=== PATIENT | male | born 1975 | race Caucasian/White ===

== ENCOUNTER 2017-04-24 09:44 | Inpatient (IN) | payer OTHER ==
--- NOTE | 2017-04-24 10:09 | RAD ---
PROCEDURE: CHEST RADIOGRAPH, 1 VIEW HISTORY: r/o infiltrate COMPARISON: None available. FINDINGS: LUNGS: Clear. PLEURA: No pneumothorax or pleural fluid seen. CARDIOVASCULAR: Normal. OSSEOUS STRUCTURES: No significant abnormalities. VISUALIZED UPPER ABDOMEN: Normal. OTHER FINDINGS: None. IMPRESSION: No active disease.
[2017-04-24 10:37] LABS: BASO % 0.7 % (0.0-2.0); EOS # 0.1 K/uL (0.0-0.7); EOS % 1.8 % (0.0-4.0); HEMATOCRIT 42.3 % (35.0-51.0); LYMPH # 1.8 K/uL (1.0-4.3); LYMPH % 33.5 % (20.0-40.0); MEAN CELL VOLUME 88.9 fL (80.0-94.0); MEAN CORPUSCULAR HEMOGLOBIN 29.4 pg (27.0-31.0); MEAN CORPUSCULAR HGB CONC 33.1 g/dL (33.0-37.0); MEAN PLATELET VOLUME 9.4 fL (7.2-11.7); MONO # 0.5 K/uL (0.0-0.8); MONO % 9.9 % (0.0-10.0); NRBC % 0.1 % (0.0-2.0); RED CELL DISTRIBUTION WIDTH 12.8 % (11.5-14.5); WHITE BLOOD COUNT 5.3 K/uL (4.8-10.8)
[2017-04-24 10:38] LABS: CHLORIDE 101 mmol/L (98-107); SODIUM 136 mmol/L (132-148)
[2017-04-24 10:39] LABS: POTASSIUM 4.6 mmol/L (3.6-5.2)
[2017-04-24 10:41] LABS: ALB/GLOB RATIO 1.4 (1.0-2.1); ALKALINE PHOSPHATASE 66 U/L (38-126); ALT/SGPT 42 U/L (21-72); AST/SGOT 33 U/L (17-59); BILIRUBIN,TOTAL 0.8 mg/dL (0.2-1.3); BLOOD UREA NITROGEN 19 mg/dL (9-20); CALCIUM 8.6 mg/dl (8.6-10.4); CARBON DIOXIDE 25 mmol/L (22-30); GFR AFRICAN-AMERICAN > 60; GLUCOSE,RANDOM 91 mg/dL (75-110); TOTAL PROTEIN 7.3 g/dL (6.3-8.3)
--- NOTE | 2017-04-24 11:07 | C.PDOC ---
History Of Present Illness 42 y/o male sent in by Dr. Ramírez for an umbilical hernia. Pt notes no physical complaints at this time. Pt has had NPO since [address] Ramírez requests Dr Grijalva for cardiac clearance. Time Seen by Provider: 04/24/17 09:54 Chief Complaint (Nursing): Abdominal Pain History Per: Patient History/Exam Limitations: no limitations Onset/Duration Of Symptoms: Days Current Symptoms Are (Timing): Still Present Severity: None Radiation Of Pain To:: None Associated Symptoms: denies: Fever, Chills, Nausea, Vomiting, Diarrhea Recent travel outside of the [place]: No Additional History Per: Patient Past Medical History Reviewed: Historical Data, Nursing Documentation, Vital Signs Vital Signs: Last Vital Signs Temp 97.9 F 04/24/17 12:59 Pulse 47 L 04/24/17 16:29 Resp 20 04/24/17 12:59 BP 109/70 04/24/17 12:59 Pulse Ox 98 04/24/17 12:59 Family History: States: Unknown Family Hx - Social History Hx Alcohol Use: No Hx Substance Use: No - Immunization History Hx Tetanus Toxoid Vaccination: No Hx Influenza Vaccination: Yes Hx Pneumococcal Vaccination: No Review Of Systems Except As Marked, All Systems Reviewed And Found Negative. Constitutional: Negative for: Fever, Chills, Weakness Respiratory: Negative for: Shortness of Breath Gastrointestinal: Negative for: Nausea, Vomiting, Abdominal Pain, Diarrhea, Constipation Neurological: Negative for: Weakness, Numbness Physical Exam - Physical Exam Appears: Non-toxic, No Acute Distress Skin: Warm, Dry Head: Atraumatic, Normacephalic Eye(s): bilateral: Normal Inspection Chest: Symmetrical Cardiovascular: Rhythm Regular, No Murmur Respiratory: Normal Breath Sounds, No Accessory Muscle Use, No Rales, No Rhonchi , No Wheezing Gastrointestinal/Abdominal: Bowel Sounds ((+) bowel sounds), Soft, No Tenderness , Hernia (Easily palpable 2cm diameter umbilical hernia.) Neurological/Psych: Oriented x3, Normal Speech, Normal Cognition ED Course And Treatment - Laboratory Results Result Diagrams: 04/24/17 10:21 04/24/17 10:21 ECG: Interpreted By Me, Viewed By Me ECG Rhythm: Sinus Bradycardia Interpretation Of ECG: Flattened T wave in V3 Rate From EC O2 Sat by Pulse Oximetry: 98 (RA) Pulse Ox Interpretation: Normal Medical Decision Making Medical Decision Making: Impression: 42 y/o male sent in by Dr. Ramírez for an umbilical hernia. Plans: -EKG -Blood labs -Reassess Spoke to Dr. 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 Dr. Grijalva recommends stress and echo prior to going to OR. Dr. Ramírez to be notified. Disposition - Disposition Disposition: HOSPITALIZED Disposition Time: 11:00 Condition: STABLE - Clinical Impression Clinical Impression: Umbilical hernia - Scribe Statement The provider has reviewed the documentation as recorded by the Scribe Yvonne marlow All medical record entries made by the Scribe were at my direction and personally dictated by me. I have reviewed the chart and agree that the record accurately reflects my personal performance of the history, physical exam, medical decision making, and the department course for this patient. I have also personally directed, reviewed, and agree with the discharge instructions and disposition.
[2017-04-24] MEDS: Oxycodone/Acetaminophen 5/325 mg Tab PO PRN (16:10)
--- NOTE | 2017-04-24 20:45 | CP.PCM.CON ---
History of Present Illness - History of Present Illness History of Present Illness: Pre Operative Cardiac risk assessment 42 M with hx of CAD, VA s/p stents, Hyperlipidemia, HTN admitted for hernia (? Strngulated) Chief Complaint (Nursing): Abdominal Pain History Per: Patient History/Exam Limitations: no limitations Onset/Duration Of Symptoms: Days Current Symptoms Are (Timing): Still Present Severity: None Radiation Of Pain To:: None Associated Symptoms: denies: Fever, Chills, Nausea, Vomiting, Diarrhea Recent travel outside of the [place]: No Additional History Per: Patient Past Medical History Reviewed: Historical Data, Nursing Documentation, Vital Signs Vital Signs: Last Vital Signs Temp 97.9 F 04/24/17 12:59 Pulse 47 L 04/24/17 16:29 Resp 20 04/24/17 12:59 BP 109/70 04/24/17 12:59 Pulse Ox 98 04/24/17 12:59 Family History: States: Unknown Family Hx - Social History Hx Alcohol Use: No Hx Substance Use: No - Immunization History Hx Tetanus Toxoid Vaccination: No Hx Influenza Vaccination: Yes Hx Pneumococcal Vaccination: No Review Of Systems Except As Marked, All Systems Reviewed And Found Negative. Constitutional: Negative for: Fever, Chills, Weakness Respiratory: Negative for: Shortness of Breath Gastrointestinal: Negative for: Nausea, Vomiting, Abdominal Pain, Diarrhea, Constipation Neurological: Negative for: Weakness, Numbness Physical Exam - Physical Exam Appears: Non-toxic, No Acute Distress Skin: Warm, Dry Head: Atraumatic, Normacephalic Eye(s): bilateral: Normal Inspection Chest: Symmetrical Cardiovascular: Rhythm Regular, No Murmur Respiratory: Normal Breath Sounds, No Accessory Muscle Use, No Rales, No Rhonchi , No Wheezing Gastrointestinal/Abdominal: Bowel Sounds ((+) bowel sounds), Soft, No Tenderness , Hernia (Easily palpable 2cm diameter umbilical hernia.) Neurological/Psych: Oriented x3, Normal Speech, Normal Cognition Past Patient History - Past Medical History & Family History Past Medical History?: Yes - Past Social History Smoking Status: Former Smoker - CARDIAC Other/Comment: 2 CARDIAC STENTS [address] GARAY - PULMONARY Hx Respiratory Disorders: No - NEUROLOGICAL Hx Neurological Disorder: No - HEENT Hx HEENT Problems: No - RENAL Hx Chronic Kidney Disease: No - ENDOCRINE/METABOLIC Hx Endocrine Disorders: No - HEMATOLOGICAL/ONCOLOGICAL Hx Blood Disorders: No - INTEGUMENTARY Hx Dermatological Problems: No - MUSCULOSKELETAL/RHEUMATOLOGICAL Hx Falls: No - GASTROINTESTINAL Other/Comment: UMBILICAL HERNIA - GENITOURINARY/GYNECOLOGICAL Hx Genitourinary Disorders: No - PSYCHIATRIC Hx Substance Use: No - SURGICAL HISTORY Hx Cardiac Catheterization: Yes (stents x2) - ANESTHESIA Hx Anesthesia: Yes Hx Anesthesia Reactions: No Meds Allergies/Adverse Reactions: Allergies Allergy/AdvReac Type Severity Reaction Status Date / Time No Known Allergies Allergy Unverified 04/24/17 09:47 - Medications Medications: Current Medications Aspirin (Aspirin Chewable) 81 mg PO DAILY [facility] Clopidogrel Bisulfate (Plavix) 75 mg PO DAILY [facility] Oxycodone/Acetaminophen (Percocet 5/325 Mg Tab) 1 tab PO Q6H PRN PRN Reason: Pain, severe (8-10) Stop: 04/27/17 14:53 Last Admin: 04/24/17 16:10 Dose: 1 tab Rosuvastatin Calcium (Crestor) 20 mg PO HS [facility] Results - Vital Signs Recent Vital Signs: Last Vital Signs Temp 97.9 F 04/24/17 12:59 Pulse 55 L 04/24/17 20:11 Resp 20 04/24/17 12:59 BP 109/70 04/24/17 12:59 Pulse Ox 98 04/24/17 18:03 - Labs Result Diagrams: 04/26/17 11:34 04/26/17 11:34 Labs: Laboratory Results - last 24 hr 04/24/17 04/24/17 11:41 11:41 PT 11.0 INR 1.0 APTT 31 Blood Type A POSITIVE Antibody Screen Negative Assessment & Plan - Assessment and Plan (Free Text) Assessment: CAD Hx of VA s/p stents HTN Hyperlipidemia Hernia Patient scheduled for ECHO and stress as a pre op cardiac work up
--- NOTE | 2017-04-24 23:08 | CP.PCM.HP ---
History of Present Illness - History of Present Illness History of Present Illness: CC: admitted for umbillical hernia 42 y/o male who has h/o CAD, 3 stents in coronories, last stent done 1 year ago , followed up by Dr. Garay, advised by Dr. Ramírez for an umbilical hernia surgery. Pt notes no physical complaints at this time. Pt has had NPO since [address] Ramírez requests Dr Garay for cardiac clearance, Patient scheduled for ECHO and stress as a pre op cardiac work up Present on Admission - Present on Admission Any Indicators Present on Admission: Yes Review of Systems - Review of Systems Systems not reviewed;Unavailable: Acuity of Condition - Constitutional Constitutional: absent: As Per HPI, Anorexia, Chills, Daytime Sleepiness, Excessive Sweating, Fatigue, Fever, Frequent Falls, Headache, Increased Appetite , Lethargy, Malaise, Night Sweats, Snoring, Sleep Apnea, Weight Gain, Weight Loss, Weakness, Other - EENT Eyes: absent: As Per HPI, Blind Spots, Blurred Vision, Change in Vision, Decreased Night Vision, Diplopia, Discharge, Dry Eye, Exophthalmos, Floaters, Irritation, Itchy Eyes, Loss of Peripheral Vision, Pain, Photophobia, Requires Corrective Lenses, Sees Flashes, Spots in Vision, Tunnel Vision, Other Visual Disturbances, Loss of Vision, Other Nose/Mouth/Throat: absent: As Per HPI, Epistaxis, Nasal Congestion, Nasal Discharge, Nasal Obstruction, Nasal Trauma, Nose Pain, Post Nasal Drip, Sinus Pain, Sinus Pressure, Bleeding Gums, Change in Voice, Dental Pain, Dry Mouth, Dysphagia, Halitosis, Hoarsness, Lip Swelling, Mouth Lesions, Mouth Pain, Odynophagia, Sore Throat, Throat Swelling, Tongue Swelling, Facial Pain, Neck Pain, Neck Mass, Other - Cardiovascular Cardiovascular: absent: As Per HPI, Acrocyanosis, Chest Pain, Chest Pain at Rest , Chest Pain with Activity, Claudication, Diaphoresis, Dyspnea, Dyspnea on Exertion, Edema, Irregular Heart Rhythm, Pain Radiating to Arm/Neck/Jaw, Leg Edema, Leg Ulcers, Lightheadedness, Orthopnea, Palpitations, Paroxysmal Nocturnal Dyspnea, Pedal Edema, Radiating Pain, Rapid Heart Rate, Slow Heart Rate, Syncope, Other - Gastrointestinal Additional comments: umbilical hernia Past Patient History - Past Medical History & Family History Past Medical History?: Yes - Past Social History Smoking Status: Former Smoker - CARDIAC Other/Comment: 2 CARDIAC STENTS [address] GARAY - PULMONARY Hx Respiratory Disorders: No - NEUROLOGICAL Hx Neurological Disorder: No - HEENT Hx HEENT Problems: No - RENAL Hx Chronic Kidney Disease: No - ENDOCRINE/METABOLIC Hx Endocrine Disorders: No - HEMATOLOGICAL/ONCOLOGICAL Hx Blood Disorders: No - INTEGUMENTARY Hx Dermatological Problems: No - MUSCULOSKELETAL/RHEUMATOLOGICAL Hx Falls: No - GASTROINTESTINAL Other/Comment: UMBILICAL HERNIA - GENITOURINARY/GYNECOLOGICAL Hx Genitourinary Disorders: No - PSYCHIATRIC Hx Substance Use: No - SURGICAL HISTORY Hx Cardiac Catheterization: Yes (stents x2) - ANESTHESIA Hx Anesthesia: Yes Hx Anesthesia Reactions: No Meds Allergies/Adverse Reactions: Allergies Allergy/AdvReac Type Severity Reaction Status Date / Time No Known Allergies Allergy Unverified 04/24/17 09:47 Physical Exam - Constitutional Appears: No Acute Distress - Head Exam Head Exam: ATRAUMATIC, NORMAL INSPECTION, NORMOCEPHALIC - Eye Exam Eye Exam: EOMI, Normal appearance, PERRL Pupil Exam: NORMAL ACCOMODATION, PERRL - Respiratory Exam Respiratory Exam: Clear to Auscultation Bilateral, NORMAL BREATHING PATTERN - Cardiovascular Exam Cardiovascular Exam: REGULAR RHYTHM - GI/Abdominal Exam GI & Abdominal Exam: Normal Bowel Sounds, Pulsatile Mass, Soft. absent: Tenderness Results - Vital Signs Recent Vital Signs: Last Vital Signs Temp 97.9 F 04/24/17 12:59 Pulse 55 L 04/24/17 20:11 Resp 20 04/24/17 12:59 BP 109/70 04/24/17 12:59 Pulse Ox 98 04/24/17 18:03 - Labs Result Diagrams: 04/26/17 11:34 04/26/17 11:34 Labs: Laboratory Results - last 24 hr 04/24/17 04/24/17 04/24/17 11:41 11:41 19:48 PT 11.0 INR 1.0 APTT 31 TSH 3rd Generation 1.40 Blood Type A POSITIVE Antibody Screen Negative Assessment & Plan (1) Umbilical hernia Assessment and Plan: CAD Hx of [place] s/p stents HTN Hyperlipidemia Hernia once pt is cleared by cardiac umbilical hernia surgery Status: Acute (2) HTN (hypertension) Status: Acute (3) CAD (coronary artery disease) Status: Acute
[2017-04-25 08:58] LABS: BASO % 0.5 % (0.0-2.0); EOS # 0.1 K/uL (0.0-0.7); EOS % 2.1 % (0.0-4.0); HEMATOCRIT 41.7 % (35.0-51.0); LYMPH # 1.5 K/uL (1.0-4.3); LYMPH % 27.7 % (20.0-40.0); MEAN CELL VOLUME 89.3 fL (80.0-94.0); MEAN CORPUSCULAR HEMOGLOBIN 29.8 pg (27.0-31.0); MEAN CORPUSCULAR HGB CONC 33.4 g/dL (33.0-37.0); MEAN PLATELET VOLUME 9.3 fL (7.2-11.7); MONO # 0.5 K/uL (0.0-0.8); MONO % 8.8 % (0.0-10.0); RED CELL DISTRIBUTION WIDTH 12.8 % (11.5-14.5); WHITE BLOOD COUNT 5.3 K/uL (4.8-10.8)
[2017-04-25 09:04] LABS: CHLORIDE 99 mmol/L (98-107)
[2017-04-25 09:05] LABS: POTASSIUM 3.9 mmol/L (3.6-5.2); SODIUM 135 mmol/L (132-148)
[2017-04-25 09:07] LABS: GFR AFRICAN-AMERICAN > 60
[2017-04-25 09:08] LABS: BLOOD UREA NITROGEN 13 mg/dL (9-20); CALCIUM 8.7 mg/dl (8.6-10.4); CARBON DIOXIDE 27 mmol/L (22-30); GLUCOSE,RANDOM 93 mg/dL (75-110)
--- NOTE | 2017-04-25 11:10 | CARD ---
APPROVED REPORT EXAM: Two-dimensional and M-mode echocardiogram with Doppler and color Doppler. Other Information Quality : GoodRhythm : NSR INDICATION CAD Chest Pain umbilibal zachary M-Mode DIMENSIONS RVDd2.28 (2.1-3.2cm)Left Atrium (MM)3.94 (2.5-4.0cm) IVSd0.85 (0.7-1.1cm)Aortic Root3.25 (2.2-3.7cm) LVDd5.11 (4.0-5.6cm)Aortic Cusp Exc.2.18 (1.5-2.0cm) PWd0.94 (0.7-1.1cm)FS (%) 36 % LVDs3.25 (2.0-3.8cm)LVEF (%)66 (>50%) Mitral Valve MV E Darjhjcb40.0cm/sMV A Ftgkjoah90.1cm/sE/A ratio1.4 TDI E/Lateral E'0.0E/Medial E'0.0 Tricuspid Valve TR Peak [id number]/sTR Peak Gr.[id number] LEFT VENTRICLE The left ventricle is normal size. There is normal left ventricular wall thickness. The left ventricular function is normal. The left ventricular ejection fraction is within the normal range. There is normal LV segmental wall motion. The left ventricular diastolic function is normal. RIGHT VENTRICLE The right ventricle is normal size. The right ventricular systolic function is normal. ATRIA The left atrium size is normal. The right atrium size is normal. AORTIC VALVE The aortic valve is normal in structure. No aortic regurgitation is present. MITRAL VALVE The mitral valve is normal in structure. Mitral regurgitation is trace. TRICUSPID VALVE The tricuspid valve is normal in structure. There is trace tricuspid regurgitation. PULMONIC VALVE The pulmonary valve is normal in structure. There is trace pulmonic valvular regurgitation. GREAT VESSELS The aortic root is normal in size. The IVC is normal in size and collapses >50% with inspiration. PERICARDIAL EFFUSION There is no pericardial effusion. <Conclusion> Normal biventricular function. Insignificant mitral, ticuspid and pulmonic regurgitation. No pericardial effusion.
--- NOTE | 2017-04-25 19:25 | CARD ---
APPROVED REPORT EKG Measurement Heart [id number] TN 122P16 [id number] <Conclusion> Sinus bradycardia Otherwise normal ECG
--- NOTE | 2017-04-25 22:47 | CP.PCM.PN ---
Subjective - Date & Time of Evaluation Date of Evaluation: 04/25/17 Time of Evaluation: 18:40 - Subjective Subjective: Patient s/p ECHO and stress test Stress test normal LV function normal No cardiac symptoms This patient assessed as low risk for cardiac events for Hernia surgery under general anaesthesia Review Of Systems Except As Marked, All Systems Reviewed And Found Negative. Constitutional: Negative for: Fever, Chills, Weakness Respiratory: Negative for: Shortness of Breath Gastrointestinal: Negative for: Nausea, Vomiting, Abdominal Pain, Diarrhea, Constipation Neurological: Negative for: Weakness, Numbness Physical Exam - Physical Exam Appears: Non-toxic, No Acute Distress Skin: Warm, Dry Head: Atraumatic, Normacephalic Eye(s): bilateral: Normal Inspection Chest: Symmetrical Cardiovascular: Rhythm Regular, No Murmur Respiratory: Normal Breath Sounds, No Accessory Muscle Use, No Rales, No Rhonchi , No Wheezing Gastrointestinal/Abdominal: Bowel Sounds ((+) bowel sounds), Soft, No Tenderness , Hernia (Easily palpable 2cm diameter umbilical hernia.) Neurological/Psych: Oriented x3, Normal Speech, Normal Cognition Objective - Vital Signs/Intake and Output Vital Signs (last 24 hours): Temp Pulse Resp BP Pulse Ox 98.1 F 51 L 20 118/73 96 04/25/17 15:00 04/25/17 15:00 04/25/17 15:00 04/25/17 15:00 04/25/17 15:00 - Medications Medications: Current Medications Famotidine (Pepcid) 20 mg IVP Q12 [facility] Last Admin: 04/25/17 21:23 Dose: 20 mg Oxycodone/Acetaminophen (Percocet 5/325 Mg Tab) 1 tab PO Q6H PRN PRN Reason: Pain, severe (8-10) Stop: 04/27/17 14:53 Last Admin: 04/24/17 16:10 Dose: 1 tab Pneumococcal Polyvalent Vaccine (Pneumovax 23 Vaccine) 0.5 ml IM .ONCE ONE Stop: 04/27/17 09:51 Rosuvastatin Calcium (Crestor) 20 mg PO HS [facility] Last Admin: 04/25/17 21:23 Dose: 20 mg - Labs Labs: PT 11.4 SECONDS (9.7-12.2) 04/25/17 08:45 INR 1.0 04/25/17 08:45 APTT 31 SECONDS (21-34) 04/24/17 11:41 Assessment and Plan - Assessment and Plan (Free Text) Assessment: CAD Hx of [place] s/p stents HTN Hyperlipidemia Hernia Patient s/p ECHO and stress test Stress test normal LV function normal No cardiac symptoms This patient assessed as low risk for cardiac events for Hernia surgery under general anaesthesia
--- NOTE | 2017-04-25 23:17 | CP.PCM.PN ---
Subjective - Date & Time of Evaluation Date of Evaluation: 04/25/17 Time of Evaluation: 09:40 - Subjective Subjective: pt seen and evalauted, s/p stress test, pending pre op clerance for umbilical hernia repair surgery, NAD Objective - Vital Signs/Intake and Output Vital Signs (last 24 hours): Temp Pulse Resp BP Pulse Ox 98.1 F 51 L 20 118/73 96 04/25/17 15:00 04/25/17 15:00 04/25/17 15:00 04/25/17 15:00 04/25/17 15:00 Intake and Output: 04/25/17 04/26/17 18:59 06:59 Intake Total 480 Balance 480 - Medications Medications: Current Medications Famotidine (Pepcid) 20 mg IVP Q12 [facility] Last Admin: 04/25/17 21:23 Dose: 20 mg Oxycodone/Acetaminophen (Percocet 5/325 Mg Tab) 1 tab PO Q6H PRN PRN Reason: Pain, severe (8-10) Stop: 04/27/17 14:53 Last Admin: 04/24/17 16:10 Dose: 1 tab Pneumococcal Polyvalent Vaccine (Pneumovax 23 Vaccine) 0.5 ml IM .ONCE ONE Stop: 04/27/17 09:51 Rosuvastatin Calcium (Crestor) 20 mg PO HS [facility] Last Admin: 04/25/17 21:23 Dose: 20 mg - Labs Labs: PT 11.4 SECONDS (9.7-12.2) 04/25/17 08:45 INR 1.0 04/25/17 08:45 APTT 31 SECONDS (21-34) 04/24/17 11:41 - Constitutional Appears: Well - Head Exam Head Exam: ATRAUMATIC, NORMAL INSPECTION, NORMOCEPHALIC - Eye Exam Eye Exam: EOMI, Normal appearance, PERRL Pupil Exam: NORMAL ACCOMODATION, PERRL - ENT Exam ENT Exam: Mucous Membranes Moist, Normal Exam - Respiratory Exam Respiratory Exam: Clear to Ausculation Bilateral, NORMAL BREATHING PATTERN - Cardiovascular Exam Cardiovascular Exam: REGULAR RHYTHM, +S1, +S2. absent: Murmur - GI/Abdominal Exam GI & Abdominal Exam: Soft, Hernia, Normal Bowel Sounds, Pulsatile Mass. absent : Tenderness Assessment and Plan (1) CAD (coronary artery disease) Status: Acute (2) HTN (hypertension) Status: Acute (3) Umbilical hernia Status: Acute
[2017-04-26 11:40] LABS: BASO % 0.6 % (0.0-2.0); EOS # 0.1 K/uL (0.0-0.7); EOS % 1.2 % (0.0-4.0); LYMPH # 1.8 K/uL (1.0-4.3); LYMPH % 32.3 % (20.0-40.0); MEAN CELL VOLUME 89.5 fL (80.0-94.0); MEAN CORPUSCULAR HGB CONC 33.5 g/dL (33.0-37.0); MEAN PLATELET VOLUME 9.3 fL (7.2-11.7); MONO # 0.5 K/uL (0.0-0.8); MONO % 9.7 % (0.0-10.0); RED CELL DISTRIBUTION WIDTH 12.8 % (11.5-14.5); WHITE BLOOD COUNT 5.6 K/uL (4.8-10.8)
[2017-04-26 11:44] LABS: INR 1.1
[2017-04-26 12:07] LABS: CHLORIDE 103 mmol/L (98-107); POTASSIUM 3.9 mmol/L (3.6-5.2); SODIUM 137 mmol/L (132-148)
[2017-04-26 12:10] LABS: CARBON DIOXIDE 26 mmol/L (22-30); GFR AFRICAN-AMERICAN > 60
[2017-04-26 12:11] LABS: BLOOD UREA NITROGEN 16 mg/dL (9-20); GLUCOSE,RANDOM 89 mg/dL (75-110)
[2017-04-26] MEDS ORDERED: Bupivacaine HCl 0.25% PF (10 ml) Inj ONE (14:00)
[2017-04-26] MEDS ORDERED: ceFAZolin IV 2 gm in Dextrose 0 GM/0 ML BAG IVPB ONE (14:01)
[2017-04-26] MEDS ORDERED: Lactated Ringer's 1,000 ML IV ONE (14:08)
[2017-04-26] MEDS ORDERED: ceFAZolin IV 1 gm in Dextrose 1 GM/50 ML BAG IVPB ONE (14:12)
[2017-04-26] MEDS ORDERED: Propofol 10 mg/ml Inj (20 ML) ONE ×2 (14:13→14:24)
[2017-04-26] MEDS ORDERED: Midazolam 2 MG/2 ML VIAL ONE (14:13)
[2017-04-26] MEDS ORDERED: Rocuronium 10 mg/ml (5 ml) ONE (14:19)
[2017-04-26] MEDS ORDERED: Neostigmine Methylsulfate 3mg/3ml Syringe IV ONE (14:37)
[2017-04-26] MEDS: HYDROmorphone 0.5 mg/0.5 ml ISec IVP PRN ×2 (15:12→15:39)
--- NOTE | 2017-04-26 15:31 | OP ---
PROCEDURE DATE: 04/26/2017 PREOPERATIVE DIAGNOSIS: Incarcerated umbilical hernia. POSTOPERATIVE DIAGNOSIS: Incarcerated umbilical hernia. PROCEDURE PERFORMED: Repair of incarcerated umbilical hernia with extensive lysis of adhesions and o mentectomy. SURGEON: Geoff Ramírez MD ANESTHESIA: General. ESTIMATED BLOOD LOSS: 15 mL. POSTOPERATIVE CONDITION: Stable. INDICATIONS FOR SURGERY: This is a 42-year-old male who presented in the ER yesterday with an incarc erated umbilical hernia. He was admitted and after cardiac workup was negative, [facility]. GROSS FINDINGS: There was a large incarcerated umbilical hernia sac which contained both bowel and o mentum. There were adhesions surrounding the sac of both the small and large bowel which had to be t aken down sharply in order to perform the hernia repair. PROCEDURE: The patient taken to the operating room. General anesthesia administered and the abdomen was prepped and draped. A generous transverse incision was made over the umbilicus and the hernia s ac was completely dissected free off of the umbilicus and transected carefully at its fascial attachm ent, completely releasing the hernia sac. There was a large amount of omentum within the hernia sac and this was divided between clamps with Vicryl ties and an omentectomy was performed and the hernia sac and omentum were delivered as one specimen. There were extensive adhesions surrounding the herni a. These were taken down sharply with Metzenbaum scissors. Small serosal tears of the small and lar ge bowel were repaired using silk. A mesenteric blood vessel was also repaired with Prolene. The he rnia repair was accomplished using interrupted 0 Prolene sutures. The overlying space was close d utilizing an adjacent tissue transfer closure by widely mobilizing and using multiple layers of Mon ocryl, subcuticular Monocryl, and skin clips. The patient tolerated the procedure well, returned to recovery room in stable condition. Geoff Ramírez MD cc: [id number] TT: 04/26/2017 15:30:47 sn
[2017-04-26] MEDS: Oxycodone/Acetaminophen 5/325 mg Tab PO PRN (18:30)
--- NOTE | 2017-04-26 21:27 | CP.PCM.PN ---
Subjective - Date & Time of Evaluation Date of Evaluation: 04/26/17 Time of Evaluation: 18:10 Objective - Vital Signs/Intake and Output Vital Signs (last 24 hours): Temp Pulse Resp BP Pulse Ox 97.5 F L 50 L 12 109/64 100 04/26/17 16:00 04/26/17 16:11 04/26/17 16:00 04/26/17 16:00 04/26/17 16:00 Intake and Output: 04/26/17 04/27/17 18:59 06:59 Intake Total 250 Balance 250 - Medications Medications: Current Medications Famotidine (Pepcid) 20 mg IVP Q12 [facility] Last Admin: 04/26/17 11:52 Dose: 20 mg Oxycodone/Acetaminophen (Percocet 5/325 Mg Tab) 1 tab PO Q6H PRN PRN Reason: Pain, severe (8-10) Stop: 04/27/17 14:53 Last Admin: 04/26/17 18:30 Dose: 1 tab Pneumococcal Polyvalent Vaccine (Pneumovax 23 Vaccine) 0.5 ml IM .ONCE ONE Stop: 04/27/17 09:51 Rosuvastatin Calcium (Crestor) 20 mg PO HS [facility] Last Admin: 04/25/17 21:23 Dose: 20 mg - Labs Labs: 04/26/17 11:34 04/26/17 11:34 PT 11.9 SECONDS (9.7-12.2) 04/26/17 11:34 INR 1.1 04/26/17 11:34 APTT 31 SECONDS (21-34) 04/24/17 11:41
--- NOTE | 2017-04-26 23:31 | CP.PCM.PN ---
Subjective - Date & Time of Evaluation Date of Evaluation: 04/26/17 Time of Evaluation: 19:00 - Subjective Subjective: pt seen and evalauted, s/pr umbilical hernia repair surgery,post op care, NAD, will discharge pt home if he remains stable after monitoring Objective - Vital Signs/Intake and Output Vital Signs (last 24 hours): Temp Pulse Resp BP Pulse Ox 97.5 F L 50 L 12 109/64 100 04/26/17 16:00 04/26/17 16:11 04/26/17 16:00 04/26/17 16:00 04/26/17 16:00 Intake and Output: 04/26/17 04/27/17 18:59 06:59 Intake Total 250 Balance 250 - Medications Medications: Current Medications Famotidine (Pepcid) 20 mg IVP Q12 [facility] Last Admin: 04/26/17 22:21 Dose: 20 mg Oxycodone/Acetaminophen (Percocet 5/325 Mg Tab) 1 tab PO Q6H PRN PRN Reason: Pain, severe (8-10) Stop: 04/27/17 14:53 Last Admin: 04/26/17 18:30 Dose: 1 tab Pneumococcal Polyvalent Vaccine (Pneumovax 23 Vaccine) 0.5 ml IM .ONCE ONE Stop: 04/27/17 09:51 Rosuvastatin Calcium (Crestor) 20 mg PO HS [facility] Last Admin: 04/26/17 22:21 Dose: 20 mg - Labs Labs: 04/26/17 11:34 04/26/17 11:34 PT 11.9 SECONDS (9.7-12.2) 04/26/17 11:34 INR 1.1 04/26/17 11:34 APTT 31 SECONDS (21-34) 04/24/17 11:41 - Constitutional Appears: No Acute Distress - Head Exam Head Exam: ATRAUMATIC, NORMAL INSPECTION, NORMOCEPHALIC - Eye Exam Eye Exam: EOMI, Normal appearance, PERRL Pupil Exam: NORMAL ACCOMODATION, PERRL - Respiratory Exam Respiratory Exam: Clear to Ausculation Bilateral, NORMAL BREATHING PATTERN - Cardiovascular Exam Cardiovascular Exam: REGULAR RHYTHM, +S1, +S2. absent: Murmur - GI/Abdominal Exam Additional comments: abd post op - Rectal Exam Rectal Exam: Deferred - Neurological Exam Neurological Exam: Alert, Awake, CN II-XII Intact, Normal Gait, Oriented x3 - Psychiatric Exam Psychiatric exam: Normal Affect, Normal Mood - Skin Skin Exam: Dry, Intact, Normal Color, Warm Assessment and Plan (1) CAD (coronary artery disease) Status: Acute (2) HTN (hypertension) Status: Acute (3) Umbilical hernia Assessment & Plan: s/p surgery Status: Acute
[2017-04-27 00:33] VITALS: BP 98/60; RESP 20; TEMP 97.9; O2SAT 96
[2017-04-27 04:49] VITALS: PULSE 44
[2017-04-27] MEDS ORDERED: Pneumococcal 23-Valent Vaccine IM ONE (09:50)
--- NOTE | 2017-04-27 23:09 | CP.PCM.DIS ---
Provider - Provider Date of Admission: 04/25/17 16:34 Attending physician: Binh Ingram MD Time Spent in preparation of Discharge (in minutes): 25 Diagnosis - Discharge Diagnosis (1) CAD (coronary artery disease) Status: Acute (2) HTN (hypertension) Status: Acute (3) Umbilical hernia Status: Acute Hospital Course - Lab Results Lab Results: Most Recent Lab Values WBC 5.6 K/uL (4.8-10.8) 04/26/17 11:34 RBC 4.69 Mil/uL (4.40-5.90) 04/26/17 11:34 Hgb 14.1 g/dL (12.0-18.0) 04/26/17 11:34 Hct 42.0 % (35.0-51.0) 04/26/17 11:34 MCV 89.5 fL (80.0-94.0) 04/26/17 11:34 MCH 30.0 pg (27.0-31.0) 04/26/17 11:34 MCHC 33.5 g/dL (33.0-37.0) 04/26/17 11:34 RDW 12.8 % (11.5-14.5) 04/26/17 11:34 Plt Count 182 K/uL (130-400) 04/26/17 11:34 MPV 9.3 fL (7.2-11.7) 04/26/17 11:34 Neut % (Auto) 56.2 % (50.0-75.0) 04/26/17 11:34 Lymph % (Auto) 32.3 % (20.0-40.0) 04/26/17 11:34 Cuming % (Auto) 9.7 % (0.0-10.0) 04/26/17 11:34 Eos % (Auto) 1.2 % (0.0-4.0) 04/26/17 11:34 Baso % (Auto) 0.6 % (0.0-2.0) 04/26/17 11:34 Neut # 3.1 K/uL (1.8-7.0) 04/26/17 11:34 Lymph # 1.8 K/uL (1.0-4.3) 04/26/17 11:34 Cuming # 0.5 K/uL (0.0-0.8) 04/26/17 11:34 Eos # 0.1 K/uL (0.0-0.7) 04/26/17 11:34 Baso # 0.0 K/uL (0.0-0.2) 04/26/17 11:34 PT 11.9 SECONDS (9.7-12.2) 04/26/17 11:34 INR 1.1 04/26/17 11:34 APTT 31 SECONDS (21-34) 04/24/17 11:41 Sodium 137 mmol/L (132-148) 04/26/17 11:34 Potassium 3.9 mmol/L (3.6-5.2) 04/26/17 11:34 Chloride 103 mmol/L (98-107) 04/26/17 11:34 Carbon Dioxide 26 mmol/L (22-30) 04/26/17 11:34 Anion Gap 12 (10-20) 04/26/17 11:34 BUN 16 mg/dL (9-20) 04/26/17 11:34 Creatinine 0.8 MG/DL (0.8-1.5) 04/26/17 11:34 Est GFR ( Amer) > 60 04/26/17 11:34 Est GFR (Non-Af Amer) > 60 04/26/17 11:34 Random Glucose 89 mg/dL (75-110) 04/26/17 11:34 Calcium 9.0 mg/dl (8.6-10.4) 04/26/17 11:34 Total Bilirubin 0.8 mg/dL (0.2-1.3) 04/24/17 10:21 AST 33 U/L (17-59) 04/24/17 10:21 ALT 42 U/L (21-72) 04/24/17 10:21 Alkaline Phosphatase 66 U/L (38-126) 04/24/17 10:21 Total Protein 7.3 g/dL (6.3-8.3) 04/24/17 10:21 Albumin 4.3 g/dL (3.5-5.0) 04/24/17 10:21 Globulin 3.0 gm/dL (2.2-3.9) 04/24/17 10:21 Albumin/Globulin Ratio 1.4 (1.0-2.1) 04/24/17 10:21 TSH 3rd Generation 1.40 mIU/L (0.46-4.68) 04/24/17 19:48 Blood Type A POSITIVE 04/24/17 11:41 Antibody Screen Negative 04/24/17 11:41 - Hospital Course Hospital Course: pt seen and evalauted, s/p umbilical hernia repair surgery,post op care, NAD, discharge pt home , remains stable after monitoring Discharge Exam - Head Exam Head Exam: ATRAUMATIC, NORMAL INSPECTION, NORMOCEPHALIC - Eye Exam Eye Exam: EOMI, Normal appearance, PERRL Pupil Exam: NORMAL ACCOMODATION, PERRL - ENT Exam ENT Exam: Mucous Membranes Moist - Respiratory Exam Respiratory Exam: Clear to PA & Lateral, NORMAL BREATHING PATTERN - Cardiovascular Exam Cardiovascular Exam: REGULAR RHYTHM, +S1, +S2 - GI/Abdominal Exam GI & Abdominal Exam: Normal Bowel Sounds - Rectal Exam Rectal Exam: Deferred Discharge Plan - Follow Up Plan Condition: STABLE Disposition: HOME/ ROUTINE Instructions: Tramadol (By mouth), Umbilical Hernia (DC), Ventral Hernia Repair (DC)
== END 2017-04-27 08:00 | disposition home or self-care (01) | DRG 337 ==
LOC: C.ER 09:44 → C.9E 11:12 → C.5T 11:41 → C.9E 16:34 → OBSVTOIN 04-25 16:34
PROVIDERS: ADMIT Internal Medicine; ATTEND Internal Medicine
PROC: 0DNW0ZZ Release Peritoneum, Open Approach (ICD-10-PCS; 2017-04-26)
PROC: 0WQF0ZZ Repair Abdominal Wall, Open Approach (ICD-10-PCS; principal; 2017-04-26 13:45)
DX: K42.0 Umbilical hernia with obstruction, without gangrene (principal); K66.0 Peritoneal adhesions (postprocedural) (postinfection); I10 Essential (primary) hypertension; I25.10 Atherosclerotic heart disease of native coronary artery without angina pectoris; E78.5 Hyperlipidemia, unspecified; I25.2 Old myocardial infarction; Z95.5 Presence of coronary angioplasty implant and graft; Z87.891 Personal history of nicotine dependence

== ENCOUNTER 2018-11-14 10:35 | Inpatient (IN) | payer OTHER ==
[2018-11-14] MEDS ORDERED: Sodium Chloride 0.9% 1,000 ML IV ONE (11:24)
--- NOTE | 2018-11-14 11:29 | C.PDOC ---
History Of Present Illness 43 year old male with a history of CAD with stent presents to the emergency department with complaints of abdominal pain for the last few days. Patient denies nausea and vomiting. Time Seen by Provider: 11/14/18 11:01 Chief Complaint (Nursing): Abdominal Pain History Per: Patient History/Exam Limitations: no limitations Onset/Duration Of Symptoms: Days Location Of Pain/Discomfort: Other (abdomen) Quality Of Discomfort: "Pain", Gas Associated Symptoms: denies: Nausea, Vomiting Past Medical History Reviewed: Historical Data, Nursing Documentation, Vital Signs Vital Signs: Last Vital Signs Temp 97.5 F L 11/14/18 10:38 Pulse 66 11/14/18 10:38 Resp 20 11/14/18 10:38 BP 125/76 11/14/18 10:38 Pulse Ox 98 11/14/18 10:38 - Medical History PMH: No Chronic Diseases Denies: Chronic Kidney Disease Surgical History: No Surg Hx - [facility] Procedures RELEASE PERITONEUM, OPEN APPROACH (04/25/17) REPAIR ABDOMINAL WALL, OPEN APPROACH (04/25/17) Family History: States: No Known Family Hx - Social History Hx Alcohol Use: No Hx Substance Use: No - Immunization History Hx Tetanus Toxoid Vaccination: No Hx Influenza Vaccination: Yes Hx Pneumococcal Vaccination: No Review Of Systems Constitutional: Negative for: Fever, Chills Eyes: Negative for: Pain, Vision Change Cardiovascular: Negative for: Chest Pain Respiratory: Negative for: Cough Gastrointestinal: Positive for: Abdominal Pain. Negative for: Nausea, Vomiting Genitourinary: Negative for: Dysuria Musculoskeletal: Negative for: Back Pain Skin: Negative for: Rash Neurological: Negative for: Weakness, Numbness Physical Exam - Physical Exam Appears: Non-toxic, No Acute Distress Skin: Normal Color, Warm, Dry Head: Atraumatic, Normacephalic Eye(s): bilateral: Normal Inspection, PERRL, EOMI Nose: Normal Oral Mucosa: Moist Neck: Normal, Supple Chest: Symmetrical, No Tenderness Cardiovascular: Rhythm Regular, No Murmur Respiratory: Normal Breath Sounds, No Rales, No Rhonchi, No Wheezing Gastrointestinal/Abdominal: Soft, Tenderness (to umbilicus), No Guarding, No Rebound, Other (surgical scar present superior to the umbilicus. Swelling to the umbilicus. ) Neurological/Psych: Oriented x3, Normal Speech, Normal Cognition ED Course And Treatment - Laboratory Results Result Diagrams: 11/14/18 11:35 11/14/18 11:35 ECG Rhythm: Sinus Bradycardia Rate From EC O2 Sat by Pulse Oximetry: 98 (RA) Pulse Ox Interpretation: Normal Medical Decision Making Medical Decision Making: Plan: Bloodbank Type and Screen EKG CMP Bloodwork CXR NaCl IV Fluids Urinalysis Disposition Discussed With Dr.: Geoff Ramírez Doctor Will See Patient In The: Hospital - Disposition Disposition: HOSPITALIZED Disposition Time: 12:05 Condition: GOOD - Clinical Impression Clinical Impression: Umbilical hernia - PA / EXPRESSIVE ART THERAPIST / Resident Statement MD/DO has reviewed & agrees with the documentation as recorded. - Scribe Statement The provider has reviewed the documentation as recorded by the Scribe (Joshua Herring) All medical record entries made by the Scribe were at my direction and personally dictated by me. I have reviewed the chart and agree that the record accurately reflects my personal performance of the history, physical exam, medical decision making, and the department course for this patient. I have also personally directed, reviewed, and agree with the discharge instructions and disposition.
--- NOTE | 2018-11-14 11:29 | C.PDOC ---
Time Seen by Provider: 11/14/18 11:01 Chief Complaint (Nursing): Abdominal Pain Past Medical History Vital Signs: Last Vital Signs Temp 97.5 F L 11/14/18 10:38 Pulse 66 11/14/18 10:38 Resp 20 11/14/18 10:38 BP 125/76 11/14/18 10:38 Pulse Ox 98 11/14/18 10:38 - Medical History PMH: Denies: Chronic Kidney Disease - [facility] Procedures RELEASE PERITONEUM, OPEN APPROACH (04/25/17) REPAIR ABDOMINAL WALL, OPEN APPROACH (04/25/17) Family History: States: Unknown Family Hx - Social History Hx Alcohol Use: No Hx Substance Use: No - Immunization History Hx Tetanus Toxoid Vaccination: No Hx Influenza Vaccination: Yes Hx Pneumococcal Vaccination: No ED Course And Treatment O2 Sat by Pulse Oximetry: 98 Disposition - Disposition
[2018-11-14 11:45] LABS: BASO % 0.5 % (0.0-2.0); EOS # 0.1 K/uL (0.0-0.7); EOS % 1.3 % (0.0-4.0); HEMOGLOBIN 13.5 g/dL (12.0-18.0); LYMPH # 1.6 K/uL (1.0-4.3); LYMPH % 30.9 % (20.0-40.0); MEAN CELL VOLUME 90.2 fL (80.0-94.0); MEAN CORPUSCULAR HEMOGLOBIN 30.2 pg (27.0-31.0); MEAN CORPUSCULAR HGB CONC 33.5 g/dL (33.0-37.0); MEAN PLATELET VOLUME 8.6 fL (7.2-11.7); MONO # 0.6 K/uL (0.0-0.8); MONO % 10.8 % (0.0-10.0); NEUT # 2.9 K/uL (1.8-7.0); NEUT % 56.5 % (50.0-75.0); NRBC % 0.1 % (0.0-2.0); RBC 4.45 Mil/uL (4.40-5.90); RED CELL DISTRIBUTION WIDTH 12.5 % (11.5-14.5); WHITE BLOOD COUNT 5.2 K/uL (4.8-10.8)
[2018-11-14] MEDS ORDERED: Sodium Chloride 0.9% 250 ML IV ONE (11:51)
[2018-11-14 11:52] LABS: URINE BACTERIA RARE (<OCC); URINE BILIRUBIN NEGATIVE (NEGATIVE); URINE BLOOD 1+ (NEGATIVE); URINE CLARITY Clear (Clear); URINE COLOR Yellow (YELLOW); URINE GLUCOSE (UA) NORMAL (Normal); URINE LEUKOCYTE ESTERASE NEG Leu/uL (Negative); URINE PROTEIN NEGATIVE (NEGATIVE); URINE UROBILINOGEN NORMAL mg/dL (0.2-1.0)
[2018-11-14 12:00] LABS: ALB/GLOB RATIO 1.6 (1.0-2.1); ALBUMIN 4.4 g/dL (3.5-5.0); ALT/SGPT 47 U/L (21-72); AST/SGOT 26 U/L (17-59); BLOOD UREA NITROGEN 16 mg/dL (9-20); CALCIUM 9.2 mg/dl (8.6-10.4); GFR NON-AFRICAN AMERICAN > 60
--- NOTE | 2018-11-14 12:24 | RAD ---
Date of service: 11/14/2018 HISTORY: Pre Op COMPARISON: Comparison made with chest radiograph 04/24/2017. TECHNIQUE: Chest PA and lateral FINDINGS: LUNGS: No active pulmonary disease. PLEURA: No significant pleural effusion identified. No pneumothorax apparent. CARDIOVASCULAR: No aortic atherosclerotic calcification present. Normal cardiac size. No pulmonary vascular congestion. OSSEOUS STRUCTURES: No significant abnormalities. VISUALIZED UPPER ABDOMEN: Normal. OTHER FINDINGS: None. IMPRESSION: No active disease.
[2018-11-14] MEDS ORDERED: Midazolam 2 MG/2 ML VIAL ONE (16:10)
[2018-11-14] MEDS ORDERED: Propofol 10 mg/ml Inj (20 ML) ONE (16:10)
[2018-11-14] MEDS ORDERED: Lactated Ringer's 1,000 ML IV ONE (16:15)
[2018-11-14] MEDS ORDERED: ceFAZolin 1 gm FROZEN Premix 1 GM/50 ML ML IVPB ONE (16:18)
[2018-11-14] MEDS: ceFAZolin 1 gm FROZEN Premix 2 GM/100 ML ML IVPB ONE ×2 (16:22→16:40)
[2018-11-14] MEDS ORDERED: Neostigmine Methylsulfate 3mg/3ml Syringe IV ONE (16:52)
[2018-11-14] MEDS: HYDROmorphone 0.5 mg/0.5 ml ISec IVP PRN ×2 (17:15→17:31)
[2018-11-14] MEDS ORDERED: HYDROmorphone 0.5 mg/0.5 ml ISec ONE (17:15)
[2018-11-14] MEDS ORDERED: oxyCODONE 5 mg Immediate Release Tab PO PRN (18:05)
[2018-11-14] MEDS: ceFAZolin 1 GM in Sodium Chloride 0.9% 100 ML IVPB SCH (21:35)
[2018-11-14] MEDS: Dextrose 5%/0.45% NS 1,000 ML IV SCH (21:36)
[2018-11-15] MEDS: ceFAZolin 1 GM in Sodium Chloride 0.9% 100 ML IVPB SCH ×3 (03:20→20:00)
[2018-11-15] MEDS: Dextrose 5%/0.45% NS 1,000 ML IV SCH ×3 (03:24→12:23)
--- NOTE | 2018-11-15 03:40 | OP ---
PROCEDURE DATE: 11/14/2018 PREOPERATIVE DIAGNOSIS: Incarcerated incisional ventral hernia. POSTOPERATIVE DIAGNOSIS: Incarcerated incisional ventral hernia. PROCEDURE PERFORMED: Repair of incarcerated incisional hernia with a mesh with extensive lysis of adhesions. SURGEON: Geoff Ramírez MD ANESTHESIA: General. BLOOD LOSS: 30 mL. POSTOPERATIVE CONDITION: Stable. INDICATIONS FOR SURGERY: This is a 43-year-old male with recurrent incisional hernia near his umbilicus who presents through the emergency room and will undergo urgent repair. GROSS FINDINGS: There was a midline cribriform hernia through the side of a previous umbilical hernia repair. The hernias were connected into a large one hernia into a larger defect, and a patch repair was performed. DESCRIPTION OF PROCEDURE: The patient was taken to the operating room, general anesthesia was administered, and the abdomen was prepped and draped. A transverse incision was made over the hernia site, and the hernia sac was encountered. It was dissected down to the fascial defect and completely excised. There were a fair amount of adhesions including transverse colon and the bowel which were taken down sharply. Any serosal tears were repaired with silk. Once some omentum was removed in order to clear the site and the hernia, the fascial edges were trimmed using the Bovie. Once the fascial edges have been completely freed of adhesions, a hernia patch was fashioned and sutured in an inlay fashion using 0 Prolene suture. The wound was irrigated with saline, and tissue flap closure was performed by widely undermining and mobilizing the muscle layers of Monocryl and subcuticular Monocryl and skin clips. The patient tolerated the procedure well and returned to recovery room in stable condition. Geoff Ramírez MD
[2018-11-15 06:53] LABS: BASO % 0.4 % (0.0-2.0); EOS # 0.1 K/uL (0.0-0.7); EOS % 1.3 % (0.0-4.0); HEMOGLOBIN 12.3 g/dL (12.0-18.0); LYMPH # 1.2 K/uL (1.0-4.3); LYMPH % 17.9 % (20.0-40.0); MEAN CELL VOLUME 90.6 fL (80.0-94.0); MEAN CORPUSCULAR HGB CONC 34.2 g/dL (33.0-37.0); MEAN PLATELET VOLUME 8.7 fL (7.2-11.7); MONO # 0.7 K/uL (0.0-0.8); NEUT # 4.7 K/uL (1.8-7.0); NEUT % 70.4 % (50.0-75.0); RBC 3.98 Mil/uL (4.40-5.90); RED CELL DISTRIBUTION WIDTH 12.4 % (11.5-14.5); WHITE BLOOD COUNT 6.7 K/uL (4.8-10.8)
[2018-11-15 07:21] LABS: BLOOD UREA NITROGEN 13 mg/dL (9-20); CALCIUM 8.4 mg/dl (8.6-10.4); GFR NON-AFRICAN AMERICAN > 60
[2018-11-15] MEDS ORDERED: Fluticasone Nasal 50 mcg/Spray NAS SCH (23:30)
[2018-11-16] MEDS: HYDROmorphone 0.5 mg/0.5 ml ISec IVP PRN ×2 (01:41→12:50)
[2018-11-16] MEDS: Dextrose 5%/0.45% NS 1,000 ML IV SCH ×3 (02:23→13:35)
[2018-11-16] MEDS: ceFAZolin 1 GM in Sodium Chloride 0.9% 100 ML IVPB SCH ×2 (02:30→14:57)
[2018-11-16 08:59] VITALS: BP 132/82; PULSE 77; RESP 20; O2SAT 94
[2018-11-16 10:05] VITALS: TEMP 99.3
[2018-11-17] MEDS ORDERED: Pneumococcal 23-Valent Vaccine IM ONE (10:00)
[2018-11-17] MEDS ORDERED: Influenza Vaccine 60 mcg/0.5 mL SYR (4YR UP) IM ONE (10:00)
== END 2018-11-16 16:58 | disposition home or self-care (01) | DRG 337 ==
LOC: C.ER 10:35 → C.9S 12:03 → C.6T 14:29
PROVIDERS: ADMIT Surgery; ATTEND Surgery
PROC: 0DNW0ZZ Release Peritoneum, Open Approach (ICD-10-PCS; 2018-11-14)
PROC: 0WQF0ZZ Repair Abdominal Wall, Open Approach (ICD-10-PCS; principal; 2018-11-14 16:13)
DX: K43.0 Incisional hernia with obstruction, without gangrene (principal); K66.0 Peritoneal adhesions (postprocedural) (postinfection)